=== PATIENT | male | born 1950 | race Caucasian/White ===

== ENCOUNTER 2018-01-11 05:10 | Day surgery (SDC) | payer MEDICARE, OTHER ==
[~2018-01-11] VITALS: Ht 185.4 cm; Wt 87.1 kg
--- NOTE | ~2018-01-11 | OP ---
PATIENT NAME: RICHARD JAEGER MEDICAL RECORD: [id number] :50 LOCATION:D.[facility] ADMISSION DATE: SURGEON: PATRICK ALEJANDRO MD DATE OF OPERATION: 01/11/2018 PREOPERATIVE DIAGNOSES: 1. Hemorrhoids. 2. History of hepatitis C. POSTOPERATIVE DIAGNOSES: 1. Hemorrhoids. 2. History of hepatitis C. PROCEDURES: 1. Right posterior hemorrhoidectomy. 2. Right anterior hemorrhoid banding. SURGEON: Patrick Alejandro MD REPORT OF PROCEDURE: The patient was placed in lithotomy position and the perianal region was prepped and draped in sterile fashion. An anoscope was used to do a 360-degree exam under anesthesia. The patient was noted to have a large mixed internal and external right posterior hemorrhoid. A suture was placed at the base of this using a 2-0 chromic. The hemorrhoid was then excised with care taken not to injure the sphincteric musculature. Once the hemorrhoid was completely excised, then the area was treated with electrocautery to stop any bleeding that was present. Once hemostasis was obtained and we irrigated out the wound, the 2-0 chromic which had been tied off at the base of the hemorrhoid was then used to running in a locking fashion closing up the anoderm. We then reinspected the anal cavity one last time and saw there was a right anterior hemorrhoid that was more internal. A hemorrhoid band was placed on this tissue and there was a good collection of tissue that was contained within the band. At this point, I saw no other sign of any hemorrhoidal tissue. We then inserted a piece of Gelfoam dipped in Americaine into the anus. COMPLICATIONS: None. CONDITION: Stable. ANESTHESIA: General endotracheal. BLOOD LOSS: Minimal. TRANSINT:[id number] Voice Confirmation ID: [id number] DOCUMENT ID: [id number] PATRICK ALEJANDRO MD at 1413 CC: DAGOBERTO RUIZ and KRISTA GARCIA DO [id number] DICTATION DATE: 01/11/18 0850 SWITCHBOARD AND CONTROL ROOM OPERATOR: 01/11/[address] [facility] 01/11/18 [facility] [address] [place] [address]
[~2018-01-11 05:10] MED LIST: VIAGRA25 MG PO
[2018-01-11] MEDS ORDERED: MULTIPLE VITAMI1 TA1 PO (06:07)
[2018-01-11] MEDS ORDERED: ADVIL200 MG PO (06:08)
[2018-01-11 06:19] VITALS: BP 138/86; Ht 185.4 cm; Wt 87.1 kg
[2018-01-11 07:06] LABS: HEMATOCRIT 43.3 % (42.0-54.0); MCH 30.6 pg (26.0-34.0); MCHC 34.6 g/dL (31.0-37.0); MCV 88.4 fL (80.0-100.0); MEAN PLATELET VOLUME 10.8 fL (7.4-10.4); PLATELET COUNT 180 10x3/uL (130-400); RDW 12.4 % (11.5-14.5); WBC 6.8 10x3/uL (4.8-10.8)
[2018-01-11 07:17] LABS: APTT 29.2 SECONDS (22.8-39.4); INR 1.03 (0.85-1.17); PROTIME 13.1 SECONDS (11.6-15.0)
[2018-01-11 07:25] LABS: ALBUMIN 3.9 g/dL (3.4-5.0); ALKALINE PHOSPHATASE 59 U/L (46-116); ALT (SGPT) 41 U/L (10-68); CALC OSMOLALITY 272 mosm/kg (275-300); CALCIUM 8.5 mg/dL (8.5-10.1); CARBON DIOXIDE 25.3 mmol/L (21.0-32.0); CHLORIDE - SERUM 104 mmol/L (98-107); CREATININE - SERUM 0.8 mg/dL (0.6-1.3); GLUCOSE 97 mg/dL (74-106); POTASSIUM - SERUM 4.6 mmol/L (3.5-5.1); PROTEIN - SERUM 7.5 g/dL (6.4-8.2); SODIUM 137 mmol/L (136-145); UREA NITROGEN 11 mg/dL (7-18); eGFR NON AFRICAN AMERICAN > 90 mL/min (90-120)
[2018-01-11 07:30] LABS: LYMPHOCYTES 54 % (15-50); MONOCYTES 1 % (2-11); NEUTROPHILS 44 % (40-80); PLATELET ESTIMATE NORMAL
[2018-01-11] MEDS ORDERED: PERCOCET 5-3251 TAB PO (08:45)
== END 2018-01-11 12:00 | disposition home or self-care (01) ==
LOC: D.OPS 05:10
PROVIDERS: Anesthesiology; Surgery
DX: K64.8 Other hemorrhoids (principal); B19.20 Unspecified viral hepatitis C without hepatic coma; Z01.812 Encounter for preprocedural laboratory examination

== ENCOUNTER → 2018-02-18 12:32 | Outpatient (CLI) | payer MEDICARE, OTHER ==
[2018-01-11 06:19] VITALS: BMI 25.3
[~2018-02-18 12:32] MED LIST changes: +ADVIL200 MG PO; +HYDROCODONE-APA1 TAB PO; +MULTIPLE VITAMI1 TA1 PO; +PERCOCET 5-3251 TAB PO
== END | disposition home or self-care (01) ==
LOC: D.MRI 12:32
DX: S83.241A Other tear of medial meniscus, current injury, right knee, initial encounter (principal)

== ENCOUNTER 2018-03-17 10:15 | Day surgery (SDC) | payer MEDICARE, OTHER ==
[2018-03-16 09:49] LABS: HEMATOCRIT 44.7 % (42.0-54.0); HEMOGLOBIN 15.7 g/dL (13.5-17.5); MCH 31.2 pg (26.0-34.0); MCHC 35.1 g/dL (31.0-37.0); MCV 88.7 fL (80.0-100.0); MEAN PLATELET VOLUME 9.5 fL (7.4-10.4); RBC 5.04 10x6/uL (4.20-6.10); RDW 12.8 % (11.5-14.5); WBC 7.5 10x3/uL (4.8-10.8)
[2018-03-16 10:04] LABS: ALBUMIN 4.1 g/dL (3.4-5.0); ALKALINE PHOSPHATASE 76 U/L (46-116); ALT (SGPT) 35 U/L (10-68); CALC OSMOLALITY 280 mosm/kg (275-300); CALCIUM 9.7 mg/dL (8.5-10.1); CARBON DIOXIDE 28.7 mmol/L (21.0-32.0); CHLORIDE - SERUM 104 mmol/L (98-107); GLUCOSE 110 mg/dL (74-106); POTASSIUM - SERUM 4.7 mmol/L (3.5-5.1); PROTEIN - SERUM 8.1 g/dL (6.4-8.2); SODIUM 140 mmol/L (136-145); UREA NITROGEN 16 mg/dL (7-18); eGFR NON AFRICAN AMERICAN 79 mL/min (90-120)
[2018-03-16 10:14] LABS: APTT 29.7 SECONDS (22.8-39.4); INR 0.96 (0.85-1.17); PROTIME 12.4 SECONDS (11.6-15.0)
[~2018-03-17] VITALS: Ht 185.4 cm; Wt 90.7 kg
--- NOTE | ~2018-03-17 | OP ---
PATIENT NAME: RICHARD JAEGER MEDICAL RECORD: [id number] :50 LOCATION:[facility] ADMISSION DATE: SURGEON: JM MAJOR MD DATE OF OPERATION: 03/17/2018 PREOPERATIVE DIAGNOSIS: Medial meniscus tear of the right knee. 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 PROCEDURE: Arthroscopic partial medial meniscectomy. Chondroplasty. SURGEON: Jm Major MD ANESTHESIA: General. INTRAOPERATIVE COMPLICATIONS: None. 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 OPERATIVE SUMMARY IN DETAIL: After obtaining the appropriate preoperative orthopedic surgery consent as well as anesthetic consultation, evaluation and clearance, the patient was brought to the operating room and placed on the operating table in supine position. After adequate general laryngeal mask was administered, tourniquet was placed about the proximal aspect of the right lower extremity. Right lower extremity was then prepped and draped in routine sterile fashion. Leg was elevated and exsanguinated, tourniquet was inflated to 350 mmHg. Routine inferolateral portal was established followed by superomedial portal and inferomedial portal. Diagnostic arthroscopy revealed the above findings. Combination of 3.5 full radius resector in conjunction with a meniscotome utilized to debride the meniscus back to stable meniscal elements. There was substantial loss of the meniscus from approximately the 4 o'clock position to the 1 o'clock position on the medial aspect. The amount of chondromalacia noted was treated with gentle chondroplasty using the torpedo shaver from [employer]. Having completed this, the knee was insufflated with 30 cc of 0.25% Marcaine and 80 mg of Depo-Medrol. Arthroscopy portals closed in routine interrupted fashion using 4-0 Prolene. Sterile dressings were applied. The tourniquet was deflated. The patient was awakened and taken to recovery room in stable condition. All final needle and sponge counts were correct. TRANSINT:[id number] Voice Confirmation ID: [id number] DOCUMENT ID: [id number] 03/21/2018 Edited procedure list per office, dmm. JM MAJOR MD at 1714 CC: [id number] DICTATION DATE: 03/17/18 1409 CURRENCY EXCHANGE SPECIALIST: 03/17/18 1742 [facility] 03/17/18 [place] [id number] [place] [address]
[~2018-03-17 10:15] MED LIST changes: -HYDROCODONE-APA1 TAB PO
[2018-03-17 11:52] VITALS: BP 145/88; Ht 185.4 cm; Wt 90.7 kg
[2018-03-17] MEDS ORDERED: HYDROCODONE-APA1 TAB PO (14:07)
== END 2018-03-17 15:45 | disposition home or self-care (01) ==
LOC: D.OPS 10:15 → D.PAN 11:00 → D.OPS 11:30 → D.PAN 11:45 → D.OPS 12:15 → D.PAN 12:30 → D.OPS 13:25
PROVIDERS: Anesthesiology
DX: S83.231A Complex tear of medial meniscus, current injury, right knee, initial encounter (principal); M94.261 Chondromalacia, right knee; Z01.812 Encounter for preprocedural laboratory examination

== ENCOUNTER → 2019-04-13 09:37 | Outpatient (CLI) | payer MEDICARE, OTHER ==
[2018-03-17 11:52] VITALS: BMI 26.4
[~2019-04-13 09:37] MED LIST changes: +HYDROCODONE-APA1 TAB PO
[2019-04-13 10:58] LABS: HEMATOCRIT 43.6 % (42.0-54.0); HEMOGLOBIN 15.6 g/dL (13.5-17.5); MCH 31.4 pg (26.0-34.0); MCHC 35.8 g/dL (31.0-37.0); MCV 87.7 fL (80.0-100.0); MEAN PLATELET VOLUME 9.7 fL (7.4-10.4); PLATELET COUNT 180 10x3/uL (130-400); RBC 4.97 10x6/uL (4.20-6.10); RDW 12.5 % (11.5-14.5); WBC 7.5 10x3/uL (4.8-10.8)
[2019-04-13 12:02] LABS: BASOPHILS 1 % (0-2); EOSINOPHILS 1 % (0-7); LYMPHOCYTES 51 % (15-50); MONOCYTES 13 % (2-11); NEUTROPHILS 28 % (40-80); PLATELET ESTIMATE NORMAL
[2019-04-19 17:08] LABS: IMMUNOGLOBULIN E 73 IU/mL (6-495)
== END | disposition home or self-care (01) ==
LOC: D.RT 09:37
PROVIDERS: ATTEND Internal Medicine Pulmonary Disease
DX: J45.909 Unspecified asthma, uncomplicated (principal)